=== PATIENT | female | born 1935 | race Caucasian/White ===

== ENCOUNTER 2017-07-13 15:40 | Inpatient (IN) | payer MEDICARE ==
[~2017-07-13] VITALS: Ht 160 cm; Wt 67.1 kg
[~2017-07-13 15:40] MED LIST: AEC81 PO; CETI-101 PO; ESCI20TA36 PO; METF-527 PO; SITA100T12 PO
[2017-07-13 17:30] VITALS: BP 127/67
[2017-07-13] MEDS ORDERED: SITA100T12 PO (17:31)
[2017-07-13] MEDS ORDERED: NITR0.4T50 SL (17:31)
[2017-07-13] MEDS ORDERED: ESCI20TA36 PO (17:31)
[2017-07-13] MEDS ORDERED: ALBU8.5H8 IH (17:31)
[2017-07-13] MEDS ORDERED: LORA0.5T2 PO (17:31)
[2017-07-13] MEDS ORDERED: METF10004 PO (17:31)
[2017-07-13] MEDS ORDERED: LOSA25TA21 PO (17:31)
[2017-07-13] MEDS ORDERED: ASPI-1181 PO (17:31)
[2017-07-13] MEDS ORDERED: ALIR150P SQ (17:31)
[2017-07-13 18:11] LABS: HEMATOCRIT 36.7 % (36-48); MEAN CORPUSCULAR HEMOGLOBIN 25.8 pg (27.0-33.0); MEAN CORPUSCULAR HGB CONC 32.9 g/dL (32.0-36.0); MEAN CORPUSCULAR VOLUME 78.2 fL (79-99); PLATELET COUNT (AUTO) 222 K/uL (130-400); RED BLOOD CELL COUNT(AUTO) 4.69 MIL/uL (4.00-5.50); RED CELL DISTRIBUTION WIDTH 14.9 % (11.0-15.5); WHITE BLOOD COUNT (AUTO) 6.8 K/uL (4.8-10.8)
[2017-07-13 18:23] LABS: INR 0.98 (0.85-1.15); PARTIAL THROMBOPLASTIN TIME 23.2 SEC (26.3-35.5); PROTHROMBIN TIME 10.3 SEC (9.6-11.6)
[2017-07-13] MEDS ORDERED: SODIUM CHLORIDE 0.9% 10 ML VIAL IVP PRN (18:30)
[2017-07-13 18:44] LABS: ALANINE AMINOTRANSFERASE 23 U/L (12-78); ALBUMIN 3.5 g/dL (3.5-5.0); ASPARTATE AMINOTRANSFERASE 19 U/L (10-37); BILIRUBIN,TOTAL 0.4 mg/dL (0.2-1.0); CARBON DIOXIDE 28 mmol/L (21-32); CHLORIDE 105 mmol/L (101-111); CREATINE KINASE MB 1.1 ng/mL (0.5-3.6); CREATINE KINASE, TOTAL 49 U/L (21-232); CREATININE 0.9 mg/dL (0.5-1.5); GLOMERULAR FILTR. RATE CALC 64 mL/min (>60); GLUCOSE,RANDOM 139 mg/dL (70-105); MYOGLOBIN 28 ng/mL (10-92); POTASSIUM 4.1 mmol/L (3.5-5.1); SODIUM SERUM 140 mmol/L (136-145); TROPONIN I < 0.04 ng/mL (0.00-0.06); UREA NITROGEN, BLOOD 17 mg/dL (7-18)
[2017-07-13] MEDS ORDERED: NITROGLYCERIN 50 MG/D5% WATER 1 BOT IV PRN (18:45)
[2017-07-13] MEDS ORDERED: POTASSIUM CHLORIDE 20MEQ/100ML 100 ML IV PRN (19:00)
[2017-07-13] MEDS ORDERED: GLUCAGON 1MG KIT 1 MG ML IM PRN (19:00)
[2017-07-13] MEDS ORDERED: DEXTROSE 50%-WATER 50 ML DISP.SYRIN IV PRN (19:00)
[2017-07-13] MEDS ORDERED: LIDOCAINE HCL-MPF 1% 2ML VIAL IJ PRN (19:00)
[2017-07-13] MEDS ORDERED: POTASSIUM CHLORIDE 10% ELIXIR 20 MEQ/15 ML UDCUP PO PRN (19:00)
[2017-07-13 19:17] LABS: B-TYPE NATRIURETIC PEPTIDE 250 pg/mL (0-100)
[2017-07-13 19:36] VITALS: BP 127/67
[2017-07-13] MEDS: ALBUTEROL 2 PUFFS IH SCH (20:32)
[2017-07-13 20:38] LABS: APPEARANCE,URINE Clear (CLEAR); BILIRUBIN,URINE Negative (NEGATIVE); COLOR,URINE Yellow (YELLOW); GLUCOSE, URINE (UA) Negative (NEGATIVE); KETONES,URINE Negative (NEGATIVE); LEUKOCYTE ESTERASE ,URINE Moderate (NEGATIVE); NITRATE,URINE Negative (NEGATIVE); OCCULT BLOOD,URINE Negative (NEGATIVE); PROTEIN,URINE Negative (NEGATIVE); UROBILINOGEN,URINE 0.2 mg/dL (0.2-1.0)
[2017-07-13] MEDS: HUMALOG PO SS1 SQ SCH (21:00)
[2017-07-13 21:02] LABS: BACTERIA,URINE Rare /HPF (None Seen); RBC,URINE 0-1 /HPF (0-1)
[2017-07-13 21:03] LABS: SQUAMOUS EPITHELIAL CELL,UR Few /HPF (0-2)
[2017-07-14] VITALS (10 sets, daily range): BP systolic 115–139; BP diastolic 62–72
[2017-07-14] MEDS ORDERED: LACTULOSE 20 GM/30 ML UDCUP PO PRN (01:00)
[2017-07-14 03:39] LABS: HEMATOCRIT 33.5 % (36-48); MEAN CORPUSCULAR HEMOGLOBIN 27.7 pg (27.0-33.0); MEAN CORPUSCULAR HGB CONC 35.5 g/dL (32.0-36.0); MEAN CORPUSCULAR VOLUME 78.2 fL (79-99); PLATELET COUNT (AUTO) 206 K/uL (130-400); RED BLOOD CELL COUNT(AUTO) 4.28 MIL/uL (4.00-5.50)
[2017-07-14 03:51] LABS: POTASSIUM 3.9 mmol/L (3.5-5.1)
[2017-07-14] MEDS: HUMALOG PO SS1 SQ SCH ×4 (06:05→20:58)
[2017-07-14] MEDS: ALBUTEROL 2 PUFFS IH SCH ×2 (09:00→21:00)
[2017-07-14] MEDS ORDERED: JANUVIA 100MG PO SCH (09:00)
[2017-07-14] MEDS ORDERED: ESCITALOPRAM 20MG PO SCH (09:00)
[2017-07-14] MEDS: FAMOTIDINE 20MG TAB 20 MG TAB PO SCH (09:41)
[2017-07-14] MEDS: LOSARTAN 50 MG TABLET PO SCH (09:41)
[2017-07-14] MEDS: ASPIRIN 81MG TAB.CHEW PO SCH (09:41)
[2017-07-14] MEDS ORDERED: LORAZEPAM 0.5 MG TABLET PO PRN (10:15)
[2017-07-14] MEDS ORDERED: ISOVUE-370 50ML VIAL IV ONE (15:23)
[2017-07-14] MEDS ORDERED: BIVALIRUDIN 250 MG/VIAL IV ONE (15:23)
[2017-07-14] MEDS ORDERED: IOPAMIDOL-370 100 ML VIAL IV ONE ×2 (15:23)
[2017-07-14] MEDS ORDERED: NITROGLYCERIN 5 MG/ML 10 ML VIAL IV ONE (15:23)
[2017-07-14] MEDS ORDERED: LIDOCAINE HCL 2% 20ML ONE (15:24)
[2017-07-14] MEDS ORDERED: NITROGLYCERIN 4.1 GM SPRAY TL ONE (16:20)
[2017-07-14] MEDS ORDERED: SODIUM CHLORIDE 0.9% 1000ML 1,000 ML IV SCH (16:37)
[2017-07-14] MEDS ORDERED: FUROSEMIDE 10 MG/ML 2ML VIAL ONE (16:44)
[2017-07-14] MEDS ORDERED: FUROSEMIDE 20 MG TABLET PO SCH (16:45)
[2017-07-14] MEDS ORDERED: GLUCAGON 1MG KIT 1 MG ML IM PRN (16:45)
[2017-07-14] MEDS ORDERED: DEXTROSE 50%-WATER 50 ML DISP.SYRIN IV PRN (16:45)
[2017-07-14] MEDS: LINAGLIPTIN 5 MG TABLET PO SCH (20:53)
[2017-07-14] MEDS: CITALOPRAM 20 MG TABLET PO SCH (20:56)
[2017-07-15 00:25] VITALS: BP 107/57
[2017-07-15 04:08] LABS: CREATININE 0.9 mg/dL (0.5-1.5); POTASSIUM 3.3 mmol/L (3.5-5.1)
[2017-07-15 04:15] VITALS: BP 114/54
[2017-07-15] MEDS: POTASSIUM CHLORIDE 20 MEQ ERTAB PO PRN ×3 (06:11→11:57)
[2017-07-15] MEDS: HUMALOG PO SS1 SQ SCH ×4 (06:37→20:54)
[2017-07-15 07:40] VITALS: BP 125/63
[2017-07-15] MEDS ORDERED: LOSARTAN 50 MG TABLET PO SCH (09:00)
[2017-07-15] MEDS: ALBUTEROL 2 PUFFS IH SCH ×2 (09:00→20:54)
[2017-07-15] MEDS: FAMOTIDINE 20MG TAB 20 MG TAB PO SCH (09:23)
[2017-07-15] MEDS: FUROSEMIDE 20 MG TABLET PO SCH (09:23)
[2017-07-15] MEDS: ASPIRIN 81MG TAB.CHEW PO SCH (09:23)
[2017-07-15] MEDS: LOSARTAN 50 MG TABLET PO SCH (09:23)
[2017-07-15] MEDS ORDERED: ALIROCUMAB 150 MG SQ SCH (10:15)
[2017-07-15 11:00] VITALS: BP 117/66
[2017-07-15 16:27] VITALS: BP 110/54
[2017-07-15 19:47] VITALS: BP 121/65
[2017-07-15] MEDS: LINAGLIPTIN 5 MG TABLET PO SCH (20:29)
[2017-07-15] MEDS: CITALOPRAM 20 MG TABLET PO SCH (20:29)
[2017-07-16] VITALS: BP 123/55
[2017-07-16 04:00] VITALS: BP 121/63
[2017-07-16 05:11] LABS: CREATININE 0.9 mg/dL (0.5-1.5); POTASSIUM 3.6 mmol/L (3.5-5.1)
[2017-07-16] MEDS: HUMALOG PO SS1 SQ SCH ×4 (06:07→22:47)
[2017-07-16] MEDS: POTASSIUM CHLORIDE 20 MEQ ERTAB PO PRN ×2 (06:18→08:52)
[2017-07-16 07:43] VITALS: BP 117/61
[2017-07-16] MEDS: LOSARTAN 50 MG TABLET PO SCH (08:51)
[2017-07-16] MEDS: ALBUTEROL 2 PUFFS IH SCH (08:51)
[2017-07-16] MEDS: FUROSEMIDE 20 MG TABLET PO SCH (08:51)
[2017-07-16] MEDS: FAMOTIDINE 20MG TAB 20 MG TAB PO SCH (08:51)
[2017-07-16] MEDS: ASPIRIN 81MG TAB.CHEW PO SCH (08:51)
[2017-07-16] MEDS ORDERED: FUROSEMIDE 10 MG/ML 2ML VIAL IV SCH (11:30)
[2017-07-16 11:34] VITALS: BP 121/57
[2017-07-16] MEDS ORDERED: VANCOMYCIN 1GM+NS 250ML 250 ML IV PRN (12:00)
[2017-07-16] MEDS: JANUVIA 100 MG PO SCH (12:47)
[2017-07-16] MEDS: CARVEDILOL 3.125 MG TABLET PO SCH ×2 (13:16→20:41)
[2017-07-16 16:39] VITALS: BP 109/56
[2017-07-16 17:25] LABS: CREATININE 0.9 mg/dL (0.5-1.5); MAGNESIUM 1.4 mg/dL (1.80-2.40); POTASSIUM 3.9 mmol/L (3.5-5.1)
[2017-07-16] MEDS: ALBUTEROL SULFATE 0.083% 2.5 MG/3 ML INH IH SCH (18:00)
[2017-07-16 19:35] VITALS: BP 134/71
[2017-07-16] MEDS: CITALOPRAM 20 MG TABLET PO SCH (20:41)
[2017-07-17] VITALS (8 sets, daily range): BP systolic 101–127; BP diastolic 49–65
[2017-07-17 05:08] LABS: MAGNESIUM 1.6 mg/dL (1.80-2.40); POTASSIUM 3.6 mmol/L (3.5-5.1)
[2017-07-17] MEDS: ALBUTEROL SULFATE 0.083% 2.5 MG/3 ML INH IH SCH ×4 (06:00→18:00)
[2017-07-17] MEDS: POTASSIUM CHLORIDE 20 MEQ ERTAB PO PRN ×2 (06:06→09:16)
[2017-07-17] MEDS: HUMALOG PO SS1 SQ SCH ×4 (07:34→20:13)
[2017-07-17] MEDS: JANUVIA 100 MG PO SCH (09:00)
[2017-07-17] MEDS: ASPIRIN 81MG TAB.CHEW PO SCH (09:12)
[2017-07-17] MEDS: CARVEDILOL 3.125 MG TABLET PO SCH ×2 (09:12→20:10)
[2017-07-17] MEDS: FUROSEMIDE 20 MG TABLET PO SCH (09:13)
[2017-07-17] MEDS: FAMOTIDINE 20MG TAB 20 MG TAB PO SCH (09:13)
[2017-07-17] MEDS ORDERED: MAGNESIUM 2GM PREMIX 50ML 50 ML IV PRN (09:15)
[2017-07-17] MEDS ORDERED: MAGNESIUM 2GM PREMIX 50ML 50 ML IV ONE (09:15)
[2017-07-17] MEDS: LOSARTAN 50 MG TABLET PO SCH (09:26)
[2017-07-17 10:06] LABS: CREATINE KINASE, TOTAL 51 U/L (21-232); MYOGLOBIN 35 ng/mL (10-92); TROPONIN I < 0.04 ng/mL (0.00-0.06)
[2017-07-17] MEDS: SPIRONOLACTONE 25 MG TAB PO SCH (18:05)
[2017-07-17] MEDS: ENOXAPARIN SODIUM 30 MG/0.3 ML SQ SCH (18:06)
[2017-07-17] MEDS: CITALOPRAM 20 MG TABLET PO SCH (20:10)
[2017-07-18 03:51] LABS: HEMATOCRIT 33.4 % (36-48); MEAN CORPUSCULAR HEMOGLOBIN 26.4 pg (27.0-33.0); MEAN CORPUSCULAR HGB CONC 33.6 g/dL (32.0-36.0); MEAN CORPUSCULAR VOLUME 78.7 fL (79-99); NUCLEATED RED BLOOD CELLS 0.1 % (0.0-0.19); PLATELET COUNT (AUTO) 210 K/uL (130-400); RED BLOOD CELL COUNT(AUTO) 4.25 MIL/uL (4.00-5.50); WHITE BLOOD COUNT (AUTO) 6.7 K/uL (4.8-10.8)
[2017-07-18 03:54] VITALS: BP 109/65
[2017-07-18 04:01] LABS: POTASSIUM 3.9 mmol/L (3.5-5.1)
[2017-07-18 04:08] LABS: INR 0.96 (0.85-1.15); PARTIAL THROMBOPLASTIN TIME 24.2 SEC (26.3-35.5); PROTHROMBIN TIME 10.1 SEC (9.6-11.6)
[2017-07-18] MEDS: ALBUTEROL SULFATE 0.083% 2.5 MG/3 ML INH IH SCH ×4 (06:00→18:00)
[2017-07-18] MEDS: HUMALOG PO SS1 SQ SCH ×4 (06:01→20:50)
[2017-07-18] MEDS: SPIRONOLACTONE 25 MG TAB PO SCH (07:34)
[2017-07-18] MEDS: CARVEDILOL 3.125 MG TABLET PO SCH ×2 (07:34→20:47)
[2017-07-18] MEDS: LOSARTAN 50 MG TABLET PO SCH (07:34)
[2017-07-18] MEDS: FAMOTIDINE 20MG TAB 20 MG TAB PO SCH (07:38)
[2017-07-18] MEDS: FUROSEMIDE 20 MG TABLET PO SCH (07:38)
[2017-07-18 07:41] VITALS: BP 108/52
[2017-07-18 11:48] VITALS: BP 104/51
[2017-07-18] MEDS: ASPIRIN 81MG TAB.CHEW PO SCH (13:04)
[2017-07-18] MEDS: ENOXAPARIN SODIUM 30 MG/0.3 ML SQ SCH (13:04)
[2017-07-18] MEDS: JANUVIA 100 MG PO SCH (13:07)
[2017-07-18 16:00] VITALS: BP 127/62
[2017-07-18 19:25] VITALS: BP 121/63
[2017-07-18] MEDS: CITALOPRAM 20 MG TABLET PO SCH (20:47)
[2017-07-18 23:39] VITALS: BP 111/80
[2017-07-19] VITALS (12 sets, daily range): BP systolic 113–147; BP diastolic 54–83
[2017-07-19] MEDS: HUMALOG PO SS1 SQ SCH ×4 (05:37→21:49)
[2017-07-19] MEDS: ALBUTEROL SULFATE 0.083% 2.5 MG/3 ML INH IH SCH ×4 (06:00→18:00)
[2017-07-19] MEDS ORDERED: BUPIVACAINE/PF 0.25% 10ML VIAL IJ ONE (08:46)
[2017-07-19] MEDS ORDERED: LIDOCAINE HCL 1% MDV 50ML VIAL ONE (08:46)
[2017-07-19] MEDS ORDERED: BUPIVACAINE/PF 0.25% 30ML VIAL IJ ONE (08:47)
[2017-07-19] MEDS ORDERED: MIDAZOLAM HCL 1 MG/ML 2ML VIAL ONE ×2 (08:52→09:58)
[2017-07-19] MEDS ORDERED: MEPERIDINE-PF 25 MG/ML SYG ONE ×2 (08:52→09:58)
[2017-07-19] MEDS ORDERED: ISOVUE-300 100 ML VIAL IV ONE (08:52)
[2017-07-19] MEDS ORDERED: VANCOMYCIN 1GM+NS 250ML 500 ML IV ONE (08:53)
[2017-07-19] MEDS: ENOXAPARIN SODIUM 30 MG/0.3 ML SQ SCH (09:00)
[2017-07-19] MEDS: CARVEDILOL 3.125 MG TABLET PO SCH ×2 (09:00→20:39)
[2017-07-19] MEDS: FAMOTIDINE 20MG TAB 20 MG TAB PO SCH (09:00)
[2017-07-19] MEDS: JANUVIA 100 MG PO SCH (09:00)
[2017-07-19] MEDS: LOSARTAN 50 MG TABLET PO SCH (09:00)
[2017-07-19] MEDS: FUROSEMIDE 20 MG TABLET PO SCH (09:00)
[2017-07-19] MEDS: SPIRONOLACTONE 25 MG TAB PO SCH (09:00)
[2017-07-19] MEDS: ASPIRIN 81MG TAB.CHEW PO SCH (09:00)
[2017-07-19] MEDS ORDERED: ACETAMINOPHEN-CODEINE 300/30MG TAB PO PRN (11:45)
[2017-07-19] MEDS ORDERED: ACETAMINOPHEN 325 MG TAB PO PRN (11:45)
[2017-07-19] MEDS: ACETAMINOPHEN-CODEINE 300/30MG TAB PO PRN ×2 (16:16→23:38)
[2017-07-19] MEDS: CITALOPRAM 20 MG TABLET PO SCH (20:39)
[2017-07-20 03:20] VITALS: BP 126/62
[2017-07-20 04:09] LABS: CREATININE 1.1 mg/dL (0.5-1.5); POTASSIUM 3.9 mmol/L (3.5-5.1)
[2017-07-20] MEDS: ALBUTEROL SULFATE 0.083% 2.5 MG/3 ML INH IH SCH ×3 (06:00→11:53)
[2017-07-20] MEDS: HUMALOG PO SS1 SQ SCH ×2 (06:32→11:23)
[2017-07-20] MEDS: FUROSEMIDE 20 MG TABLET PO SCH (07:29)
[2017-07-20] MEDS: CARVEDILOL 3.125 MG TABLET PO SCH (07:29)
[2017-07-20] MEDS: LOSARTAN 50 MG TABLET PO SCH (07:29)
[2017-07-20] MEDS: SPIRONOLACTONE 25 MG TAB PO SCH (07:29)
[2017-07-20] MEDS: ASPIRIN 81MG TAB.CHEW PO SCH (07:30)
[2017-07-20] MEDS: FAMOTIDINE 20MG TAB 20 MG TAB PO SCH (07:30)
[2017-07-20] MEDS: JANUVIA 100 MG PO SCH (07:30)
[2017-07-20 07:40] VITALS: BP 128/58
[2017-07-20] MEDS ORDERED: FURO20TA6 PO (09:45)
[2017-07-20] MEDS ORDERED: SPIR25TA PO (09:45)
[2017-07-20] MEDS ORDERED: CARV3.1262 PO (09:45)
[2017-07-20 11:31] VITALS: BP 127/63
[2017-07-20] MEDS: ACETAMINOPHEN-CODEINE 300/30MG TAB PO PRN (11:50)
[2017-07-20] MEDS ORDERED: TYL3 PO (15:44)
[2017-07-20 16:01] VITALS: BP 122/60
== END 2017-07-20 17:30 | disposition home or self-care (01) | DRG 242 ==
LOC: EDH 15:40 → EDHIP 15:41 → 2DH 17:40
PROVIDERS: ADMIT Family Medicine; ATTEND Family Medicine
PROC: B2111ZZ Fluoroscopy of Multiple Coronary Arteries using Low Osmolar Contrast (ICD-10-PCS; principal; 2017-07-14)
PROC: B2151ZZ Fluoroscopy of Left Heart using Low Osmolar Contrast (ICD-10-PCS; 2017-07-14)
PROC: 4A023N7 Measurement of Cardiac Sampling and Pressure, Left Heart, Percutaneous Approach (ICD-10-PCS; 2017-07-14)
PROC: 0JH607Z Insertion of Cardiac Resynchronization Pacemaker Pulse Generator into Chest Subcutaneous Tissue and Fascia, Open Approach (ICD-10-PCS; 2017-07-19)
PROC: 02H63JZ Insertion of Pacemaker Lead into Right Atrium, Percutaneous Approach (ICD-10-PCS; 2017-07-19)
PROC: 02HK3JZ Insertion of Pacemaker Lead into Right Ventricle, Percutaneous Approach (ICD-10-PCS; 2017-07-19)
DX: I25.5 Ischemic cardiomyopathy (principal); I50.43 Acute on chronic combined systolic (congestive) and diastolic (congestive) heart failure; E11.9 Type 2 diabetes mellitus without complications; I34.0 Nonrheumatic mitral (valve) insufficiency; I11.0 Hypertensive heart disease with heart failure; I25.119 Atherosclerotic heart disease of native coronary artery with unspecified angina pectoris; E78.5 Hyperlipidemia, unspecified; I25.2 Old myocardial infarction; I44.7 Left bundle-branch block, unspecified; J45.909 Unspecified asthma, uncomplicated; K21.9 Gastro-esophageal reflux disease without esophagitis; Z79.82 Long term (current) use of aspirin; Z82.49 Family history of ischemic heart disease and other diseases of the circulatory system; Z90.710 Acquired absence of both cervix and uterus; Z95.1 Presence of aortocoronary bypass graft; Z95.5 Presence of coronary angioplasty implant and graft; Z88.0 Allergy status to penicillin; Z88.2 Allergy status to sulfonamides; Z88.8 Allergy status to other drugs, medicaments and biological substances; Z90.49 Acquired absence of other specified parts of digestive tract
CPT/HCPCS: 33225; 33249; 36415; 71045; 80048; 80053; 80061; 81001; 82550; 82553; 82948; 83735; 83874; 83880; 84484; 85027; 85610; 85730; 93005; 93459; 94664; 99156; 99157; C1760; C1769; C1882; C1894; C1900; J0583; J1644; J1650; J1940; J2175; J2250; J3370; J3475; J3490; Q9967

== ENCOUNTER → 2017-11-01 | Outpatient (CLI) | payer MEDICARE ==
[~2017-11-01] MED LIST changes: -AEC81 PO; +ALIR150P SQ; +ASPI-1181 PO; +CARV3.1262 PO; -CETI-101 PO; +FURO20TA6 PO; +LORA0.5T2 PO; +LOSA25TA16 PO; +METF-446 PO; -METF-527 PO; +NITR0.4T50 SL; +SPIR25TA PO; +TYL3 PO
== END | disposition home or self-care (01) ==
LOC: RAH 10:08
PROVIDERS: ATTEND Internal Medicine Gastroenterology
DX: R13.12 Dysphagia, oropharyngeal phase (principal); R63.3 Feeding difficulties; F32.9 Major depressive disorder, single episode, unspecified; I11.0 Hypertensive heart disease with heart failure; I50.9 Heart failure, unspecified; E11.9 Type 2 diabetes mellitus without complications; E78.5 Hyperlipidemia, unspecified; K21.9 Gastro-esophageal reflux disease without esophagitis
CPT/HCPCS: 74230; 92611; G8996; G8997; G8998

== ENCOUNTER → 2018-06-21 | Outpatient (CLI) | payer MEDICARE ==
[~2018-06-21] MED LIST changes: -LOSA25TA16 PO; +LOSA25TA41 PO
== END | disposition home or self-care (01) ==
LOC: SHCH 09:53
PROVIDERS: ATTEND Internal Medicine Cardiovascular Disease
DX: I08.0 Rheumatic disorders of both mitral and aortic valves (principal); I50.42 Chronic combined systolic (congestive) and diastolic (congestive) heart failure; I25.2 Old myocardial infarction; G47.33 Obstructive sleep apnea (adult) (pediatric)
CPT/HCPCS: 93306

== ENCOUNTER 2018-11-08 08:50 | Emergency (ER) | payer MEDICARE ==
[2018-11-08] MEDS ORDERED: IOHEXOL-350 75 ML VIAL IV ONE (09:06)
[2018-11-08 09:09] LABS: BASOPHILS % (AUTO) 0.6 % (0.0-5.0); EOSINOPHILS % (AUTO) 3.3 % (0.0-8.0); HEMATOCRIT 32.9 % (36-48); LYMPHOCYTES % (AUTO) 24.2 % (21.0-51.0); MEAN CORPUSCULAR HEMOGLOBIN 27.8 pg (27.0-33.0); MEAN CORPUSCULAR HGB CONC 34.2 g/dL (32.0-36.0); MEAN CORPUSCULAR VOLUME 81.3 fL (79-99); MONOCYTES % (AUTO) 9.4 % (3.0-13.0); NEUTROPHILS % (AUTO) 62.5 % (40.0-77.0); PLATELET COUNT (AUTO) 216 K/uL (130-400); RED BLOOD CELL COUNT(AUTO) 4.05 MIL/uL (4.00-5.50); RED CELL DISTRIBUTION WIDTH 14.5 % (11.0-15.5)
[2018-11-08 09:16] LABS: CREATININE 1.4 mg/dL (0.5-1.5); POTASSIUM 4.2 mmol/L (3.5-5.1)
[2018-11-08 09:22] LABS: ALBUMIN 3.4 g/dL (3.5-5.0); BILIRUBIN,TOTAL 0.2 mg/dL (0.2-1.0); TOTAL PROTEIN, SERUM 6.7 g/dL (6.0-8.3)
[2018-11-08 09:31] LABS: INR 0.93 (0.85-1.15); PARTIAL THROMBOPLASTIN TIME 22.7 SEC (26.3-35.5); PROTHROMBIN TIME 9.8 SEC (9.6-11.6)
[2018-11-08 09:48] LABS: APPEARANCE,URINE Cloudy (CLEAR); BILIRUBIN,URINE Negative (NEGATIVE); COLOR,URINE Yellow (YELLOW); GLUCOSE, URINE (UA) Negative (NEGATIVE); KETONES,URINE Negative (NEGATIVE); LEUKOCYTE ESTERASE ,URINE Large (NEGATIVE); NITRATE,URINE Negative (NEGATIVE); OCCULT BLOOD,URINE Negative (NEGATIVE); PROTEIN,URINE Negative (NEGATIVE)
[2018-11-08 09:50] LABS: BACTERIA,URINE Few /HPF (None Seen); RBC,URINE 0-1 /HPF (0-1); SQUAMOUS EPITHELIAL CELL,UR Few /HPF (0-2)
[2018-11-08] MEDS ORDERED: ONDANSETRON HCL 4 MG/2 ML VIAL ONE (10:41)
[2018-11-08] MEDS ORDERED: ACETAMINOPHEN EXTRA STRENGTH 500 MG TABLET ONE (11:16)
[2018-11-08] MEDS ORDERED: CYCLOBENZAPRINE HCL 10 MG TABLET ONE (11:17)
== END 2018-11-08 12:50 | disposition home or self-care (01) ==
LOC: EDH 08:50
DX: M54.2 Cervicalgia (principal); M25.511 Pain in right shoulder; I10 Essential (primary) hypertension; E11.9 Type 2 diabetes mellitus without complications; E78.5 Hyperlipidemia, unspecified; Z88.0 Allergy status to penicillin; Z88.2 Allergy status to sulfonamides; Z88.8 Allergy status to other drugs, medicaments and biological substances; V49.59XA Passenger injured in collision with other motor vehicles in traffic accident, initial encounter; Y93.89 Activity, other specified; Y92.89 Other specified places as the place of occurrence of the external cause; Y99.8 Other external cause status
CPT/HCPCS: 36415; 70450; 71045; 72125; 72131; 73030; 74177; 80053; 81001; 82150; 82550; 83690; 84484; 85025; 85610; 85730; 93005; 96374; 99285; J2405; Q9967

== ENCOUNTER 2019-01-11 13:14 | Emergency (ER) | payer MEDICARE ==
[2019-01-11 13:37] LABS: BASOPHILS % (AUTO) 0.7 % (0.0-5.0); EOSINOPHILS % (AUTO) 3.4 % (0.0-8.0); HEMATOCRIT 33.2 % (36-48); LYMPHOCYTES % (AUTO) 22.5 % (21.0-51.0); MEAN CORPUSCULAR HEMOGLOBIN 27.9 pg (27.0-33.0); MEAN CORPUSCULAR HGB CONC 33.3 g/dL (32.0-36.0); MEAN CORPUSCULAR VOLUME 83.9 fL (79-99); MONOCYTES % (AUTO) 8.6 % (3.0-13.0); NEUTROPHILS % (AUTO) 64.8 % (40.0-77.0); PLATELET COUNT (AUTO) 225 K/uL (130-400); RED BLOOD CELL COUNT(AUTO) 3.95 MIL/uL (4.00-5.50); RED CELL DISTRIBUTION WIDTH 15.1 % (11.0-15.5); WHITE BLOOD COUNT (AUTO) 6.3 K/uL (4.8-10.8)
[2019-01-11 13:46] LABS: INR 0.97 (0.85-1.15); PARTIAL THROMBOPLASTIN TIME 22.9 SEC (26.3-35.5); PROTHROMBIN TIME 10.2 SEC (9.6-11.6)
[2019-01-11 13:56] LABS: CREATININE 1.4 mg/dL (0.5-1.5); POTASSIUM 4.8 mmol/L (3.5-5.1)
[2019-01-11 14:02] LABS: ALBUMIN 3.4 g/dL (3.5-5.0); BILIRUBIN,TOTAL 0.2 mg/dL (0.2-1.0); TOTAL PROTEIN, SERUM 6.8 g/dL (6.0-8.3)
[2019-01-11] MEDS ORDERED: LIDOCAINE 1%-EPI 1:100,000 20 ML VIAL IJ ONE (14:51)
[2019-01-11] MEDS ORDERED: ACETAMINOPHEN EXTRA STRENGTH 500 MG TABLET ONE (14:53)
== END 2019-01-11 16:46 | disposition home or self-care (01) ==
LOC: EDH 13:14
DX: S01.21XA Laceration without foreign body of nose, initial encounter (principal); S40.012A Contusion of left shoulder, initial encounter; E11.9 Type 2 diabetes mellitus without complications; E78.5 Hyperlipidemia, unspecified; I10 Essential (primary) hypertension; Z98.84 Bariatric surgery status; Z88.0 Allergy status to penicillin; Z88.2 Allergy status to sulfonamides; Z88.8 Allergy status to other drugs, medicaments and biological substances; W18.39XA Other fall on same level, initial encounter; Y93.89 Activity, other specified; Y92.89 Other specified places as the place of occurrence of the external cause; Y99.8 Other external cause status
CPT/HCPCS: 12051; 36415; 70450; 70486; 71045; 73020; 73560; 80053; 82550; 84484; 85025; 85610; 85730; 93005; 99285; J3490

== ENCOUNTER 2020-01-30 09:58 | Observation (INO) | payer MEDICARE ==
[2020-01-28 09:00] LABS: BASOPHILS % (AUTO) 0.4 % (0.0-5.0); EOSINOPHILS % (AUTO) 3.1 % (0.0-8.0); HEMATOCRIT 34.2 % (36-48); LYMPHOCYTES % (AUTO) 29.6 % (21.0-51.0); MEAN CORPUSCULAR HEMOGLOBIN 24.6 pg (27.0-33.0); MEAN CORPUSCULAR HGB CONC 30.4 g/dL (32.0-36.0); MONOCYTES % (AUTO) 8.9 % (3.0-13.0); NEUTROPHILS % (AUTO) 57.9 % (40.0-77.0); PLATELET COUNT (AUTO) 257 K/uL (130-400); RED BLOOD CELL COUNT(AUTO) 4.22 MIL/uL (4.00-5.50); RED CELL DISTRIBUTION WIDTH 15.2 % (11.0-15.5); WHITE BLOOD COUNT (AUTO) 7.1 K/uL (4.8-10.8)
[2020-01-28 09:05] LABS: APPEARANCE,URINE Clear (CLEAR); BILIRUBIN,URINE Negative (NEGATIVE); COLOR,URINE Yellow (YELLOW); GLUCOSE, URINE (UA) Negative (NEGATIVE); KETONES,URINE Negative (NEGATIVE); LEUKOCYTE ESTERASE ,URINE Moderate (NEGATIVE); NITRATE,URINE Negative (NEGATIVE); OCCULT BLOOD,URINE Negative (NEGATIVE); PROTEIN,URINE Negative (NEGATIVE); UROBILINOGEN,URINE 0.2 mg/dL (0.2-1.0)
[2020-01-28 09:16] LABS: CREATININE 1.3 mg/dL (0.5-1.5); POTASSIUM 4.8 mmol/L (3.5-5.1)
[2020-01-28 09:21] LABS: INR 0.92 (0.85-1.15); PARTIAL THROMBOPLASTIN TIME 22.2 SEC (26.3-35.5)
[2020-01-28 09:29] LABS: BACTERIA,URINE Few /HPF (None Seen); RBC,URINE None Seen /HPF (0-1)
[2020-01-29 13:35] VITALS: BP 117/62
[~2020-01-30] VITALS: Ht 157.5 cm; Wt 69.9 kg
[2020-01-30] VITALS (8 sets, daily range): BP systolic 123–131; BP diastolic 50–65
[~2020-01-30 09:58] MED LIST changes: -ALIR150P SQ; -ASPI-1181 PO; +ASPI-1443 PO; +BUDE3CAP7 PO; -CARV3.1262 PO; +CETI-89 PO; -FURO20TA6 PO; +HYDR12.54 PO; -LORA0.5T2 PO; -LOSA25TA41 PO; +METO-408 PO; +PANT40TA54 PO; +SACU1TAB PO; +SODIUM CHLORIDE 0.9% 500ML 500 ML IV SCH; -SPIR25TA PO; -TYL3 PO
[2020-01-30] MEDS ORDERED: HEPARIN SODIUM 1000UNIT/ML 10ML VIAL ONE (15:40)
[2020-01-30] MEDS ORDERED: LIDOCAINE HCL 2% 20ML ONE (15:40)
[2020-01-30] MEDS ORDERED: FENTANYL CITRATE PF 50 MCG/1 ML 2ML VIAL ONE (15:40)
[2020-01-30] MEDS ORDERED: NITROGLYCERIN 2 MG/VIAL VIAL IV ONE (15:40)
[2020-01-30] MEDS ORDERED: IOHEXOL 350 MG/ML 100ML INFUS..BTL IV ONE (15:40)
[2020-01-30] MEDS ORDERED: MIDAZOLAM HCL 1 MG/ML 2ML VIAL ONE (15:40)
[2020-01-30] MEDS ORDERED: IOHEXOL-350 50ML VIAL IV ONE (15:40)
[2020-01-30] MEDS ORDERED: SODIUM BICARB 50MEQ 50ML VIAL 50 ML ONE (15:58)
[2020-01-30] MEDS ORDERED: BIVALIRUDIN 250 MG/VIAL IV ONE (15:58)
[2020-01-30] MEDS ORDERED: FUROSEMIDE 10 MG/ML 2ML VIAL ONE (16:51)
[2020-01-30] MEDS: LOSARTAN 50 MG TABLET PO SCH ×2 (19:22→21:02)
[2020-01-31 04:01] VITALS: BP 135/61
[2020-01-31 06:13] LABS: CREATININE 1.2 mg/dL (0.5-1.5); POTASSIUM 4.1 mmol/L (3.5-5.1)
[2020-01-31 08:45] VITALS: BP 116/51
== END 2020-01-31 10:20 | disposition home or self-care (01) ==
LOC: DAH 09:58 → 4DH 09:59 → DAH 09:59
PROVIDERS: ADMIT Internal Medicine Cardiovascular Disease; ATTEND Internal Medicine Cardiovascular Disease
DX: I25.119 Atherosclerotic heart disease of native coronary artery with unspecified angina pectoris (principal); I50.9 Heart failure, unspecified; I42.9 Cardiomyopathy, unspecified; G47.30 Sleep apnea, unspecified; E11.9 Type 2 diabetes mellitus without complications; Z99.89 Dependence on other enabling machines and devices; Z95.1 Presence of aortocoronary bypass graft; Z90.710 Acquired absence of both cervix and uterus; Z79.82 Long term (current) use of aspirin; Z79.899 Other long term (current) drug therapy; Z88.0 Allergy status to penicillin; Z88.2 Allergy status to sulfonamides; Z88.8 Allergy status to other drugs, medicaments and biological substances
CPT/HCPCS: 36415 ×2; 71045; 80048 ×2; 81001; 82948 ×4; 85025; 85610; 85730; 87088; 93005; 93459; A4215; A4216; A4221; A4222; A4223 ×2; A4606; A4663; C1760; C1894 ×2; G0378 ×24; J1644; J1940; J3490 ×3; Q9965 ×2; Q9967 ×2; J0583; J2250; J3010

== ENCOUNTER → 2020-03-16 | Outpatient (CLI) | payer MEDICARE ==
[~2020-03-16] MED LIST changes: -ESCI20TA36 PO; +ESCI20TA54 PO; -SODIUM CHLORIDE 0.9% 500ML 500 ML IV SCH
== END | disposition home or self-care (01) ==
LOC: RAH 12:21
PROVIDERS: ATTEND Internal Medicine Cardiovascular Disease
DX: I70.0 Atherosclerosis of aorta (principal); L90.5 Scar conditions and fibrosis of skin
CPT/HCPCS: 71250

== ENCOUNTER → 2020-04-22 | Outpatient (CLI) | payer MEDICARE ==
[~2020-04-22] MED LIST changes: +ALBUTEROL SULFATE 0.083% 2.5 MG/3 ML INH IH ONE; +ESCI20TA38 PO; -ESCI20TA54 PO
== END | disposition home or self-care (01) ==
LOC: RESP 09:53
PROVIDERS: ATTEND Internal Medicine Cardiovascular Disease
DX: J98.8 Other specified respiratory disorders (principal)
CPT/HCPCS: 94060; 94727; 94729

== ENCOUNTER → 2020-08-07 | Outpatient (CLI) | payer MEDICARE ==
[~2020-08-07] MED LIST changes: -ALBUTEROL SULFATE 0.083% 2.5 MG/3 ML INH IH ONE
== END | disposition home or self-care (01) ==
LOC: RAH 13:27
PROVIDERS: ATTEND Internal Medicine Critical Care Medicine
DX: R06.09 Other forms of dyspnea (principal); R06.02 Shortness of breath; Z95.1 Presence of aortocoronary bypass graft; Z95.0 Presence of cardiac pacemaker
CPT/HCPCS: 71046; 78582; A9540; A9558

== ENCOUNTER → 2022-03-29 | Outpatient (CLI) | payer MEDICARE ==
[2022-03-29 12:49] LABS: CREATININE 1.8 mg/dL (0.5-1.5)
== END | disposition home or self-care (01) ==
LOC: LAB 08:53
PROVIDERS: ATTEND Internal Medicine Cardiovascular Disease
DX: I50.22 Chronic systolic (congestive) heart failure (principal); D68.59 Other primary thrombophilia; I48.91 Unspecified atrial fibrillation; N18.30 Chronic kidney disease, stage 3 unspecified
CPT/HCPCS: 36415; 80048; 83880

== ENCOUNTER → 2022-05-19 | Outpatient (CLI) | payer MEDICARE | END | disposition home or self-care (01) | LOC: RAH 13:57 | PROVIDERS: ATTEND Family Medicine | DX: J96.01 Acute respiratory failure with hypoxia (principal) | CPT/HCPCS: 78582; 71046; A9540; A9558 ==

== ENCOUNTER → 2022-07-14 | Outpatient (CLI) | payer MEDICARE ==
[2022-07-14 12:10] LABS: BASOPHILS % (AUTO) 0.6 % (0.0-5.0); HEMATOCRIT 34.3 % (36-48); LYMPHOCYTES % (AUTO) 33.8 % (21.0-51.0); MEAN CORPUSCULAR HGB CONC 28.3 g/dL (32.0-36.0); MEAN CORPUSCULAR VOLUME 70.7 fL (79-99); MONOCYTES % (AUTO) 9.2 % (3.0-13.0); NEUTROPHILS % (AUTO) 50.3 % (40.0-77.0); PLATELET COUNT (AUTO) 244 K/uL (130-400); RED BLOOD CELL COUNT(AUTO) 4.85 MIL/uL (4.00-5.50); RED CELL DISTRIBUTION WIDTH 18.2 % (11.0-15.5); WHITE BLOOD COUNT (AUTO) 7.1 K/uL (4.8-10.8)
[2022-07-14 12:29] LABS: ALBUMIN 3.6 g/dL (3.5-5.0); CREATININE 1.8 mg/dL (0.5-1.5); POTASSIUM 4.2 mmol/L (3.5-5.1)
== END | disposition home or self-care (01) ==
LOC: LAB 08:14
PROVIDERS: ATTEND Internal Medicine Cardiovascular Disease
DX: I50.42 Chronic combined systolic (congestive) and diastolic (congestive) heart failure (principal); D68.59 Other primary thrombophilia; I63.9 Cerebral infarction, unspecified; I48.91 Unspecified atrial fibrillation
CPT/HCPCS: 36415; 80053; 80061; 83880; 85025

== ENCOUNTER → 2022-12-12 | Outpatient (CLI) | payer MEDICARE ==
[2022-12-12 12:59] LABS: ALBUMIN 3.1 g/dL (3.5-5.0); BILIRUBIN,TOTAL 0.2 mg/dL (0.2-1.0); CREATININE 1.7 mg/dL (0.5-1.5); POTASSIUM 4.4 mmol/L (3.5-5.1); TOTAL PROTEIN, SERUM 6.8 g/dL (6.0-8.3)
== END | disposition home or self-care (01) ==
LOC: LAB 09:38
PROVIDERS: ATTEND Internal Medicine Cardiovascular Disease
DX: I50.22 Chronic systolic (congestive) heart failure (principal); I95.2 Hypotension due to drugs; R05.9 Cough, unspecified
CPT/HCPCS: 36415; 80053; 80061; 83735; 83880

== ENCOUNTER → 2023-10-11 | Outpatient (CLI) | payer MEDICARE ==
[2023-10-11 12:10] LABS: BASOPHILS # (AUTO) 0.07 K/uL (0.00-0.20); BASOPHILS % (AUTO) 0.8 % (0.0-5.0); EOSINOPHILS # (AUTO) 0.25 K/uL (0.00-0.70); EOSINOPHILS % (AUTO) 2.8 % (0.0-8.0); IMMATURE GRANULOCYTE ABSOLUTE 0.04 K/uL (0-1); LYMPHOCYTES # (AUTO) 2.6 K/uL (1.0-4.8); LYMPHOCYTES % (AUTO) 29.2 % (21.0-51.0); MEAN CORPUSCULAR HEMOGLOBIN 29.5 pg (27.0-33.0); MEAN CORPUSCULAR VOLUME 89.5 fL (79-99); MONOCYTES # (AUTO) 0.9 K/uL (0.1-1.0); MONOCYTES % (AUTO) 9.5 % (3.0-13.0); NEUTROPHILS # (AUTO) 5.1 K/uL (1.8-7.7); NEUTROPHILS % (AUTO) 57.3 % (40.0-77.0); PLATELET COUNT (AUTO) 252 K/uL (130-400); RED BLOOD CELL COUNT(AUTO) 4.47 MIL/uL (4.00-5.50); RED CELL DISTRIBUTION WIDTH 13.2 % (11.0-15.5); WHITE BLOOD COUNT (AUTO) 8.9 K/uL (4.8-10.8)
[2023-10-11 12:30] LABS: B-TYPE NATRIURETIC PEPTIDE 66 pg/mL (0-100)
[2023-10-11 12:37] LABS: CREATININE 1.7 mg/dL (0.5-1.0); POTASSIUM 4.3 mmol/L (3.5-5.1)
== END | disposition home or self-care (01) ==
LOC: LAB 11:06
PROVIDERS: ATTEND Internal Medicine Cardiovascular Disease
DX: I95.1 Orthostatic hypotension (principal)
CPT/HCPCS: 36415; 80048; 83880; 85025

== ENCOUNTER → 2024-02-01 | Outpatient (CLI) | payer MEDICARE ==
[2024-02-01 12:46] LABS: ALBUMIN 2.9 g/dL (3.5-5.0); BILIRUBIN,TOTAL 0.2 mg/dL (0.2-1.0); CREATININE 1.1 mg/dL (0.5-1.0); POTASSIUM 4.5 mmol/L (3.5-5.1)
== END | disposition home or self-care (01) ==
LOC: LAB 01-31 11:47
PROVIDERS: ATTEND Internal Medicine Cardiovascular Disease
DX: I11.0 Hypertensive heart disease with heart failure (principal); I50.42 Chronic combined systolic (congestive) and diastolic (congestive) heart failure
CPT/HCPCS: 36415; 80053; 80061

== ENCOUNTER → 2024-04-23 | Outpatient (CLI) | payer MEDICARE ==
--- NOTE | 2024-04-23 14:08 | HMCIMG ---
CT LOW EXT W/O CONTRAST HISTORY: Right hip pain after fall last week COMPARISON: None TECHNIQUE: Multiple sequential axial images of the pelvis were obtained from the iliac crests through symphysis pubis. Patient was not given contrast through intravenous route. Oral contrast was not given. FINDINGS/IMPRESSION: Streak artifact from right femoral fixation pins. Mild calcific plaque along the abdominal aortic and iliac vessel solorio, and moderate stool burden. Both hip joints and sacroiliac joints appear normal. No evidence for fracture, dislocation, or any significant joint effusion.
== END | disposition home or self-care (01) ==
LOC: RAH 12:52
PROVIDERS: ATTEND Family Medicine
DX: M25.551 Pain in right hip (principal); I70.0 Atherosclerosis of aorta
CPT/HCPCS: 73700

== ENCOUNTER → 2024-06-04 | Outpatient (CLI) | payer MEDICARE ==
[2024-06-04 12:43] LABS: CREATININE 1.6 mg/dL (0.5-1.0); POTASSIUM 5.1 mmol/L (3.5-5.1)
== END | disposition home or self-care (01) ==
LOC: LAB 10:51
PROVIDERS: ATTEND Internal Medicine Cardiovascular Disease
DX: I11.0 Hypertensive heart disease with heart failure (principal); I50.42 Chronic combined systolic (congestive) and diastolic (congestive) heart failure; R55 Syncope and collapse; Z95.810 Presence of automatic (implantable) cardiac defibrillator
CPT/HCPCS: 36415; 80048; 83880

== ENCOUNTER → 2024-07-30 | Outpatient (CLI) | payer MEDICARE ==
[~2024-07-30] VITALS: Ht 160 cm; Wt 55.1 kg
[~2024-07-30] MED LIST changes: +APIX2.5T PO; +CYCL-309 PO; +EVOL140S2 SQ; +FURO40TA5 PO; +OXYB10TA30 PO
[2024-07-30 14:27] LABS: BASOPHILS # (AUTO) 0.06 K/uL (0.00-0.20); BASOPHILS % (AUTO) 0.9 % (0.0-5.0); EOSINOPHILS # (AUTO) 0.18 K/uL (0.00-0.70); EOSINOPHILS % (AUTO) 2.7 % (0.0-8.0); HEMATOCRIT 37.8 % (36-48); IMMATURE GRANULOCYTE ABSOLUTE 0.03 K/uL (0-1); LYMPHOCYTES # (AUTO) 1.8 K/uL (1.0-4.8); LYMPHOCYTES % (AUTO) 26.1 % (21.0-51.0); MEAN CORPUSCULAR HEMOGLOBIN 26.6 pg (27.0-33.0); MEAN CORPUSCULAR HGB CONC 31.2 g/dL (32.0-36.0); MEAN CORPUSCULAR VOLUME 85.1 fL (79-99); MONOCYTES # (AUTO) 0.7 K/uL (0.1-1.0); MONOCYTES % (AUTO) 9.9 % (3.0-13.0); NEUTROPHILS # (AUTO) 4.1 K/uL (1.8-7.7); PLATELET COUNT (AUTO) 253 K/uL (130-400); RED BLOOD CELL COUNT(AUTO) 4.44 MIL/uL (4.00-5.50); RED CELL DISTRIBUTION WIDTH 13.4 % (11.0-15.5); WHITE BLOOD COUNT (AUTO) 6.8 K/uL (4.8-10.8)
[2024-07-30 14:39] LABS: PROTHROMBIN TIME 10.6 SEC (9.6-11.6)
[2024-07-30 14:40] LABS: PARTIAL THROMBOPLASTIN TIME 23.3 SEC (26.3-35.5)
[2024-07-30 14:51] LABS: CREATININE 1.8 mg/dL (0.5-1.0); POTASSIUM 4.4 mmol/L (3.5-5.1)
--- NOTE | 2024-07-30 15:05 | NUR ---
report reported rbs to dr mix. pt to follow up with primary. pt scheduled with dr webber for tomorrow at 9am and see rehan shah. pt and spouse informed reported pain and burning with urination to dr mix. received orders to collect ua and culture and fax results to dr webber.
[2024-07-30 15:19] VITALS: BP 111/53; PULSE 74; RESP 17; TEMP 97.8
[2024-07-30 15:25] LABS: ADD UA MICROSCOPIC YES; APPEARANCE,URINE CLEAR (CLEAR); BILIRUBIN,URINE NEGATIVE (NEGATIVE); COLOR,URINE LIGHT-YELLOW (YELLOW); GLUCOSE, URINE (UA) >=1000 mg/dL (NEGATIVE); KETONES,URINE NEGATIVE (NEGATIVE); LEUKOCYTE ESTERASE ,URINE 75 Leu/uL (NEGATIVE); NITRATE,URINE 1+ (NEGATIVE); OCCULT BLOOD,URINE NEGATIVE (NEGATIVE); PH,URINE 5.5 (5.0-8.0); PROTEIN,URINE NEGATIVE (NEGATIVE); UROBILINOGEN,URINE 0.2 mg/dL (0.2-1.0)
[2024-07-30 15:28] LABS: BACTERIA,URINE FEW /HPF (None Seen); MUCUS,URINE RARE LPF (None Seen); SQUAMOUS EPITHELIAL CELL,UR RARE /HPF (0-2); WBC CLUMP RARE /HPF (0-1); WBC,URINE 26-50 /HPF (0-1)
--- NOTE | 2024-07-30 15:38 | EKG ---
[facility] Test Date: 2024-07-30 Test Time: 14:20:00 Pat Name: CE TOMPKINS Department: COUNTS INCLUDE [facility] BEDS AT THE [facility] Room: Gender: F Calibration Specialist: [id number] : 1935 Requested By: MAGNUS WILLIAM Order Number: [id number] Reading MD: Tracy Beaver Measurements Intervals [place] Rate: 70 P: 0 MS: 128 QRS: -78 QRSD: 220 T: 109 QT: 501 QTc: 543 Interpretive Statements Atrial-paced complexes IVCD, consider RBBB LVH with secondary repolarization abnormality ST elevation secondary to IVCD Compared to ECG 01/28/2020 08:43:42 Left ventricular hypertrophy now present Early repolarization now present Intraventricular conduction delay now present ST (T wave) deviation now present Ventricular premature complex(es) no longer present Ventricular-paced complex(es) or rhythm no longer present Left-axis deviation no longer present Electronically Signed On 07-30-2024 18:53:55 CDT by Tracy Beaver Please click the below link to view image of tracing.
--- NOTE | 2024-07-31 08:35 | NUR ---
f/u received call from dr mix to cancel procedure. pt notified
== END | disposition home or self-care (01) ==
LOC: EDSTATUS 10:00 → LAB 13:43
PROVIDERS: ATTEND Internal Medicine Cardiovascular Disease
DX: T82.198A Other mechanical complication of other cardiac electronic device, initial encounter (principal); I45.10 Unspecified right bundle-branch block; I51.7 Cardiomegaly; R94.31 Abnormal electrocardiogram [ECG] [EKG]; Y71.8 Miscellaneous cardiovascular devices associated with adverse incidents, not elsewhere classified; Y92.89 Other specified places as the place of occurrence of the external cause; Z79.01 Long term (current) use of anticoagulants; Z79.899 Other long term (current) drug therapy
CPT/HCPCS: 36415; 80048; 81001; 85025; 85610; 85730; 87086; 87186; 93005

== ENCOUNTER 2024-10-02 06:37 | Day surgery (SDC) | payer MEDICARE ==
[2024-09-30 08:44] LABS: IMMATURE GRANULOCYTE ABSOLUTE 0.03 K/uL (0-1); NUCLEATED RED BLOOD CELLS 0.0 % (0.0-0.19); PLATELET COUNT (AUTO) 254 K/uL (130-400); RED BLOOD CELL COUNT(AUTO) 4.07 MIL/uL (4.00-5.50); RED CELL DISTRIBUTION WIDTH 14.9 % (11.0-15.5); WHITE BLOOD COUNT (AUTO) 8.0 K/uL (4.8-10.8)
--- NOTE | 2024-09-30 08:44 | EKG ---
[facility] Test Date: 2024-09-30 Test Time: 08:33:23 Pat Name: CE TOMPKINS Department: [facility] Room: Gender: F Automation Control Integrator: [id number] : 1935 Requested By: MAGNUS WILLIAM Order Number: [id number] Reading MD: Tu Kruse Measurements Intervals [place] Rate: 88 P: 99 MI: 194 QRS: -48 QRSD: 156 T: 207 QT: 415 QTc: 502 Interpretive Statements A-V dual-paced complexes w/ some inhibition Compared to ECG 07/30/2024 14:20:00 Atrial-paced complex(es) or rhythm no longer present Left ventricular hypertrophy no longer present Early repolarization no longer present Intraventricular conduction delay no longer present ST (T wave) deviation no longer present Electronically Signed On 09-30-2024 18:38:29 CDT by Tu Kruse Please click the below link to view image of tracing.
[2024-09-30 08:52] LABS: CREATININE 1.5 mg/dL (0.5-1.0); GLOMERULAR FILTR. RATE CALC 34.0 mL/min (>90); GLUCOSE,RANDOM 229.0 mg/dL (70-105); SODIUM SERUM 139.0 mmol/L (136-145); UREA NITROGEN, BLOOD 28.0 mg/dL (7-18)
[2024-09-30 08:54] LABS: INR 1.02 (0.85-1.15)
[2024-09-30 09:16] VITALS: BP 107/43; PULSE 82; RESP 15; TEMP 97.7
[~2024-10-02] VITALS: Ht 157.5 cm; Wt 61.5 kg
[2024-10-02] VITALS (8 sets, daily range): BP systolic 101–144; BP diastolic 43–97; PULSE 68–90; RESP 14–15; TEMP 97.3–97.4
[~2024-10-02 06:37] MED LIST changes: +DAPA5TAB PO; +GLIP5TAB15 PO; -HYDR12.54 PO; +INSU3INS3 SQ; -METF-446 PO; -SACU1TAB PO; -SITA100T12 PO
[2024-10-02] MEDS: 0.9%NACL 1000ML 1,000 ML IV SCH (08:05)
[2024-10-02] MEDS ORDERED: SODIUM BICARB 50MEQ 50ML VIAL 50 ML ONE (10:28)
[2024-10-02] MEDS ORDERED: LIDOCAINE HCL 1% MDV 50ML VIAL ONE (10:28)
[2024-10-02] MEDS ORDERED: MIDAZOLAM HCL 1 MG/ML 2ML VIAL ONE ×3 (10:43→11:55)
[2024-10-02] MEDS ORDERED: VANCOMYCIN 1G/250ML KIT 500 ML IV ONE (10:43)
[2024-10-02] MEDS ORDERED: IODIXANOL 320 MG/ML 100 ML VIAL ONE (10:56)
[2024-10-02] MEDS ORDERED: BACITRACIN 1 EACH PACKET TP ONE (13:28)
[2024-10-02] MEDS ORDERED: TRAM50TA4 PO (14:05)
--- NOTE | 2024-10-02 14:15 | PN ---
The patient came in today for an upgrade of her cardiac resynchronization therapy defibrillator due to a nonfunctioning left ventricular lead that was previously implanted in 2018. The plan was to implant a conduction system lead in the left bundle branch area. Unfortunately, this can not be accomplished despite using three different delivery systems with two different companies. Full details in the report. There was one location that yielded good numbers however the pacing threshold was greater than 6 volts. In the end, she had a generator replacement as her device was at [facility]. This patient has NYHA class III-ambulatory IV. When her LV lead was functioning, she was a nonresponder. She continues to have class three symptoms and her ejection fraction has not changed. Consideration was given to replace the left ventricular lead, however since she was previously a nonresponder this was not felt to warrant the risk. Of note, her intrinsic left bundle branch block QRS duration measured at 148 milliseconds, and her RV paced QRS duration is 174 milliseconds. Postprocedure, this could not be brought out given her very long AV delay however this will be re-evaluated in the office. This patient is a good candidate for cardiac contractility modulation therapy. This will be discussed with the patient and the family and possibly planned for the near future. Plan: 1. The patient will be discharged home later today 2. We will see the patient at her usual follow up visit in 10-14 days at which time she will be seen by a provider as well as the device clinic 3. We will discuss cardiac contractility modulation therapy 4. We will re-evaluate her intrinsic AV conduction in the event that we can minimize RV pacing which may be more detrimental than her intrinsic left bundle branch block. MAGNUS WILLIAM MD Oct 02, 2024 14:14
--- NOTE | 2024-10-02 14:17 | NUR ---
PT ARRIVED TO DAY PATIENT 8 VSS NAD PRESSURE DRESSING TO LEFT SIDE OF CHEST NOTED.
--- NOTE | 2024-10-02 16:20 | NUR ---
PRESSURE DRESSING REMOVED FROM LEFT CHEST SCANT AMOUNT OF BLOOD NOTED TO DRESSING UNDER PRESSURE DRESSING. BLOOD OUTLINED EXPLAINED INSTRUCTIONS IF BLEEDING WORSENS. NO HEMATOMA BRUISING NOTED
--- NOTE | 2024-10-02 16:51 | NUR ---
BOTH PT AND SPOUSE GIVEN VERBAL AND WRITTEN DISCHARGE INSTRUCTIONS. I DEMONSTRATED DRESSING CHANGES TO BOTH PT AND . IV REMOVED SITE ASYMPTOMATIC. LEFT CHEST ASYMPTOMATIC. PT TAKEN OUT VIA WHEELCHAIR DRIVING
== END 2024-10-02 16:54 | disposition home or self-care (01) ==
LOC: DAH 06:37
PROVIDERS: ATTEND Internal Medicine Cardiovascular Disease
DX: Z45.02 Encounter for adjustment and management of automatic implantable cardiac defibrillator (principal); T82.198A Other mechanical complication of other cardiac electronic device, initial encounter; I25.5 Ischemic cardiomyopathy; I44.7 Left bundle-branch block, unspecified; I50.42 Chronic combined systolic (congestive) and diastolic (congestive) heart failure; I25.10 Atherosclerotic heart disease of native coronary artery without angina pectoris; E78.5 Hyperlipidemia, unspecified; G47.33 Obstructive sleep apnea (adult) (pediatric); N18.9 Chronic kidney disease, unspecified; E11.22 Type 2 diabetes mellitus with diabetic chronic kidney disease; Z95.1 Presence of aortocoronary bypass graft; Z95.5 Presence of coronary angioplasty implant and graft; Z86.73 Personal history of transient ischemic attack (TIA), and cerebral infarction without residual deficits; Z79.82 Long term (current) use of aspirin; Z79.01 Long term (current) use of anticoagulants; Z79.899 Other long term (current) drug therapy; Y71.2 Prosthetic and other implants, materials and accessory cardiovascular devices associated with adverse incidents
CPT/HCPCS: 80048; 85025; 85610; 85730; 36415; 93005; 33264; 99156; 99157 ×5; 82948 ×2; C1769; C1898 ×2; C1882; J3010 ×2; J0665; J3490 ×2; J2250 ×3; J3373; Q9967; A4215; A4222; A4221; A4663; A4216; A4606; A4223 ×3

== ENCOUNTER 2024-10-11 18:07 | Observation (INO) | payer MEDICARE ==
[~2024-10-11] VITALS: Ht 157.5 cm; Wt 60.1 kg
[~2024-10-11 18:07] MED LIST changes: +TRAM50TA4 PO
[2024-10-11 18:33] LABS: IMMATURE GRANULOCYTE ABSOLUTE 0.02 K/uL (0-1); NUCLEATED RED BLOOD CELLS 0.0 % (0.0-0.19); PLATELET COUNT (AUTO) 262 K/uL (130-400); RED BLOOD CELL COUNT(AUTO) 3.66 MIL/uL (4.00-5.50); RED CELL DISTRIBUTION WIDTH 14.7 % (11.0-15.5); WHITE BLOOD COUNT (AUTO) 7.4 K/uL (4.8-10.8)
[2024-10-11 18:46] LABS: INR 1.04 (0.85-1.15)
--- NOTE | 2024-10-11 18:54 | ERN ---
General Chief Complaint: Other Problems Stated Complaint: HEMATOMA TO PACEMAKER SITE Time Seen by MD: 18:15 History of Present Illness Initial Comments 88-year-old female who presents for left chest wall swelling/mass. On 10/02/2024 patient had a pacemaker placed by Dr. William. There were no complications at the time. She has been taking 2.5 mg of Eliquis b.i.d. and 81 mg of aspirin daily. She reports today she noticed swelling under the site. She does not have any complaints such as internal chest pain, vomiting, dizz iness, or complain of any other bleeding. She denies trauma. Allergies: Coded Allergies: Penicillins (Unverified Allergy, RASH,SWELLS, 12/19/11) Sxfvjlc-Tuz-Pxp Reductase Inhibitor (Unverified Allergy, JOINT PAIN, 11/21 11/01) Sulfa(Sulfonamide Antibiotics) (Unverified Allergy, RASH,SWELLS, 12/19/11) Home Meds Active Scripts Tramadol Hcl (Tramadol HCl) 50 Mg Tablet, 50 MG PO Q6HPRN PRN for PAIN, #15 TAB 0 Refills Prov:MAGNUS WILLIAM MD 10/02/24 Reported Medications Dapagliflozin Propanediol (Farxiga) 5 Mg Tablet, 5 MG PO DAILY, TAB 09/30/24 Insulin Glargine,Hum.rec.anlog (Lantus Solostar) 100 Unit/Ml (3 Ml) Insuln.pen, 30 UNIT SQ PM, SYRINGE 09/30/24 Glipizide (Glipizide) 5 Mg Tablet, 5 MG PO BID, TAB 09/30/24 Apixaban (Eliquis) 2.5 Mg Tablet, 2.5 MG PO BID, TAB 07/30/24 Furosemide (Furosemide) 40 Mg Tablet, 40 MG PO AM, TAB 07/30/24 Oxybutynin Chloride (Oxybutynin Chloride ER) 10 Mg Tab.er.24, 10 MG PO AM 07/30/24 Cyclobenzaprine HCl (Cyclobenzaprine HCl) 10 Mg Tablet, 10 MG PO TID PRN for PAIN, TAB 07/30/24 Evolocumab (Repatha Syringe) 140 Mg/Ml Syringe, 140 MG SQ [id number], SYRINGE 07/30/24 Budesonide (Budesonide EC) 3 Mg Capdr...er, 9 MG PO DAILY 01/29/20 Cetirizine HCl (Zyrtec) 10 Mg Tablet, 20 MG PO BID, TAB 01/29/20 Pantoprazole Sodium (Pantoprazole Sodium) 40 Mg Tablet.dr, 40 MG PO DAILY, TAB 01/29/20 Metoprolol Succinate (Metoprolol Succinate) 25 Mg Tab.er.24h, 25 MG PO AM, TAB 01/29/20 Nitroglycerin (Nitroglycerin) 0.4 Mg Tab.subl, 0.4 MG SL AD, TAB.SL 07/13/17 Escitalopram Oxalate (Escitalopram Oxalate) 20 Mg Tablet, 20 MG PO DAILY, TAB 07/13/17 Aspirin (Aspirin EC) 81 Mg Tablet.dr, 81 MG PO HS, TAB 07/13/17 Past Medical History Past Medical History: Diabetes-Type II, Heart Disease, Renal Disese Past Surgical History: Hysterectomy, CABG Surgical History Other: RT ANKLE SX, ROS Dictation CONSTITUTIONAL: No chills, no fever, no weakness, no diaphoresis, no malaise. HEAD/FACE: No signs of trauma. EENT: No eye pain, no blurred vision, no tearing, no double vision, no ear pain, no ear discharge, no nose pain, no nasal congestion, no throat pain, no throat swelling, no mouth pain. RESPIRATORY: No cough, no orthopnea, no SOB, no stridor, no wheezing. CARDIOVASCULAR: Left chest wall swelling GASTROINTESTINAL/ABDOMINAL: No abdominal pain, no constipation, no diarrhea, no nausea, no vomiting. GENITOURINARY: No abnormal discharge, no dysuria, no frequent urination, no hematuria. No complaints of pain in the genitals. MUSCULOSKELETAL: No back pain, no gout, no joint pain, no joint swelling, no muscle pain, no muscle stiffness, no neck pain. INTEGUMENTARY: No change in color, no change in hair/nails, no dryness, no lesion, no lumps, no rash. NEUROLOGICAL/PSYCH: No anxiety, not depressed, no emotional problem, no headache, no numbness, no pre-existing deficit, no history of seizures, no tremors, no weakness. HEMATOLOGIC/LYMPHATIC: Not anemic, no history of blood clots, no apparent bleeding, no bruising, glands not swollen. All Systems Negative, Except as Noted. Physical Exam Physical Exam Dictation VITAL SIGNS: Reviewed. GENERAL APPEARANCE: Alert, oriented x3, no acute distress HEAD AND FACE: Non-traumatic. EYES: PERRL, pink conjunctivas, eyelid no trauma, anterior chamber clear. EARS: Pinnas intact and no signs of trauma or erythema. Ear canals clear and no discharge. TMs no erythema. NOSE: No discharge, no bleeding. OROPHARYNX: Mouth normal, teeth no caries, tongue pink. Pharynx clear, no erythema. Tonsils no exudates, no abscesses noted. Mucous membrane moist. NECK: Supple, non-tender, no thyromegaly, no masses, no JVD, no bruits. BREAST: Deferred. CHEST: No tenderness, no crepitus, no paradoxical movement, no retractions. Left chest wall has swelling/hematoma under the cleaned wound site. Approximately the size of an orange. LUNGS: Clear, well-ventilated, symmetric, no rales, no wheezing, no rhonchi, no stridor, good breath sounds bilaterally. HEART: Regular rate, regular rhythm, no murmur, no gallops. VASCULAR: No peripheral edema. ABDOMEN: Soft, positive bowel sounds, nondistended, no guarding, nontender, no rebound, no masses no hepatomegaly, no splenomegaly, no Larios's sign, no hernias. RECTAL: Deferred. GENITAL: Deferred. NEUROLOGICAL: Normal speech, gross motor function intact, gross sensory function intact. MUSCULOSKELETAL: Neck nontender, full range of motion, back nontender, full range of motion. EXTREMITIES: Nontender, full range of motion. SKIN: Color pink, dry, no turgor, no rash, no lacerations, no abrasions, no contusions. LYMPHATICS: Deferred. Results Laboratory and Microbiology Lab and Micro Result Laboratory Tests Test 10/11/24 18:25 10/11/24 19:22 White Blood Count 7.4 K/uL (4.8-10.8) Red Blood Count 3.66 MIL/uL (4.00-5.50) L Hemoglobin 9.1 g/dL (12.0-16.0) L Hematocrit 29.7 % (36-48) L Mean Corpuscular Volume 81.1 fL (79-99) Mean Corpuscular Hemoglobin 24.9 pg (27.0-33.0) L Mean Corpuscular Hemoglobin Concent 30.6 g/dL (32.0-36.0) L Red Cell Distribution Width 14.7 % (11.0-15.5) Platelet Count 262 K/uL (130-400) Mean Platelet Volume 9.7 fL (7.5-10.5) Immature Granulocyte % (Auto) 0.3 % (0-1) Neutrophils (%) (Auto) 61.2 % (40.0-77.0) Lymphocytes (%) (Auto) 21.1 % (21.0-51.0) Monocytes (%) (Auto) 9.8 % (3.0-13.0) Eosinophils (%) (Auto) 6.8 % (0.0-8.0) Basophils (%) (Auto) 0.8 % (0.0-5.0) Neutrophils # (Auto) 4.5 K/uL (1.8-7.7) Lymphocytes # (Auto) 1.6 K/uL (1.0-4.8) Monocytes # (Auto) 0.7 K/uL (0.1-1.0) Eosinophils # (Auto) 0.50 K/uL (0.00-0.70) Basophils # (Auto) 0.06 K/uL (0.00-0.20) Absolute Immature Granulocyte (auto 0.02 K/uL (0-1) Nucleated Red Blood Cells 0.0 % (0.0-0.19) Red Blood Cell Morphology See comments Prothrombin Time 11.0 SEC (9.6-11.6) Prothromb Time International Ratio 1.04 (0.85-1.15) Activated Partial Thromboplast Time 24.7 SEC (26.3-35.5) L Sodium Level 136 mmol/L (136-145) Potassium Level 4.0 mmol/L (3.5-5.1) Chloride Level 101 mmol/L (101-111) Carbon Dioxide Level 29 mmol/L (21-32) Blood Urea Nitrogen 27 mg/dL (7-18) H Creatinine 1.4 mg/dL (0.5-1.0) H Glomerular Filtration Rate Calc 36 mL/min (>90) Random Glucose 297 mg/dL (70-105) H Total Calcium 8.4 mg/dL (8.5-10.1) L Total Creatine Kinase 52 U/L (21-232) Troponin I High Sensitivity 101 ng/L (4-50) *H Urine Color COLORLESS (YELLOW) Urine Appearance CLEAR (CLEAR) Urine pH 5.5 (5.0-8.0) Urine Specific [place] 1.006 (1.001-1.031) Urine Protein NEGATIVE mg/dL (NEGATIVE) Urine Glucose (UA) 30 mg/dL (NEGATIVE) H Urine Ketones NEGATIVE mg/dL (NEGATIVE) Urine Occult Blood NEGATIVE (NEGATIVE) Urine Nitrate NEGATIVE (NEGATIVE) Urine Bilirubin NEGATIVE mg/dL (NEGATIVE) Urine Urobilinogen 0.2 mg/dL (0.2-1.0) Urine Leukocyte Esterase NEGATIVE Aram/uL Urine RBC 0-1 /HPF (0-1) Urine WBC 2-5 /HPF (0-1) H Urine Squamous Epithelial Cells RARE /HPF (0-2) Urine Bacteria None /HPF (None Seen) MDM Differential diagnosis: Hematoma of chest wall, abscess, migration of the pacemaker Rationale: Tests considered and ordered secondary to shared decision making include: labs, ECG and radiology Previous outside records reviewed: Old ER visits. Risk of complication and/or morbidity or mortality of patient management: None Medications-Per medication reconciliation Need for hospitalization: Patient does meet criteria for hospitalization. Need for emergency major/minor surgery: No There are no social concerns with this patient. Prescription drug management Prescriptions will include symptomatic care Patient's prior external medical records from other ER visits were reviewed by me as indicated. Prior testing and results from previous visits were reviewed. Prior tests were taken into account with medical decision making and resource utilization, independent historian/historians were used to obtain complete medical history. I independently interpreted the test that were performed, results were reviewed by me and considered findings on radiology if ordered. Medical management and examination interpretation discussions were had by me with other qualified healthcare professionals as indicated for the patient's care. ED Course Orders Procedure Category Date Status Time Cardiac Panel LAB 10/11/24 Complete 18:18 Cbc With Differential LAB 10/11/24 Complete 18:18 Basic Metabolic Panel LAB 10/11/24 Complete 18:18 Prothrombin Time With LAB 10/11/24 Complete INR 18:18 Partial LAB 10/11/24 Complete Thromboplastin Time 18:18 12 Lead Ekg Tracing- EKG 10/11/24 Complete Technical 18:18 Chest 1vw RAD 10/11/24 Resulted 18:18 Urinalysis Profile LAB 10/11/24 Complete 20:08 Morphine 2mg Syg PHA 10/11/24 Complete (Morphine 2mg Syg) 20:30 Edm Admit Bridge Order ADM 10/11/24 Transmitted 20:36 Current Medications Medications (Trade) Dose Ordered Sig/Payam Route PRN Reason Start Time Stop Time Status Last Admin Dose Admin Morphine Sulfate (morPHINE 2MG SYG) 2 mg ONCE ONCE IVP 10/11/24 20:30 10/11/24 20:31 DC Vital Signs Date Time Temp Pulse Resp B/P (MAP) Pulse Ox O2 Delivery O2 Flow Rate FiO2 10/11/24 21:12 81 18 137/74 96 Room Air* 0 10/11/24 19:55 98.1 78 18 139/58 99 Room Air* 0 10/11/24 18:48 97.9 61 17 140/61 95 Room Air* 0 10/11/24 18:08 98.1 73 18 126/53 97 Room Air 7:05 p.m. patient was signed out to me by a.m. physician Ms. Birmingham is a very pleasant 88-year-old female with multiple medical problems presented to the emergency room complaining of swelling of the pacemaker area. Patient underwent pacemaker procedure unclear if it was just replacement of wire [address] William. Her anticoagulation and aspirin were resumed. Patient began experiencing increasing swelling in the left chest area subclavicular area progressively and she began experiencing pain warranting her visit to ER No fever chills or rigors. No drainage. Dr. Gonzáles spoke with Dr. Pringle mortgage loan counselor who basically recommended holding all the anticoagulation. Temperature 98 pulse 73 respirations 18 blood pressure 126/53 with a pulse oximetry of 97% on room air Her chronic medical problems include diabetes mellitus, hypertension, coronary artery disease status post CABG, chronic kidney disease. Left chest area extremely large, firm swelling surrounding the pacemaker. Labs reviewed CBC showed a white count of 7.4 hemoglobin 9.1 platelets 262. Please note that patient had a hemoglobin of 11.8 on 07/30/2024 and 10.2 on 09/20 BNP 7 is significant for a BUN and creatinine of 27 and 1.4 with a glucose of 297. Chest x-ray shows haziness in the left lung area may simply be the hematoma at the chest wall causing the shadow Considering significant hemoglobin drop and extremely large hematoma with pain, I recommended to the patient and her spouse that it would be prudent to monitor her in the hospital. Both are agreeable 8:38 p.m. patient accepted by [facility] mid-level provider for [facility] for admission and monitoring serial hemoglobins and transfuse as necessary . DX & DISP Disposition: Inpatient Departure Impression: Primary Impression: Chest wall hematoma Additional Impressions: Anticoagulant effect, Chest wall pain following surgery, Postsurgical cardiac pacemaker in situ Condition: Stable Additional Instructions: Patient was informed of all the diagnostic labs and procedures conducted in the emergency room today and demonstrated understanding of the results. I personally reviewed and interpreted all the diagnostic exams performed in the ER today. The patient will be admitted to the hospital for further treatment and evaluation. Disposition-admit to facility Condition-stable/guarded Course-uncertain at this time Pain status-decreased Assessment-exam unchanged Admission Certification- I certify that the patients status is appropriate and is based on my best clinical judgment and the patient's condition as documented in the medical records Referrals: JAMESON FREGOSO MD (PCP) NILS GONZÁLES DO Oct 11, 2024 18:54 TAE RICHARDSON MD Oct 11, 2024 20:46
--- NOTE | 2024-10-11 18:58 | EKG ---
[facility] Test Date: 2024-10-11 Test Time: 18:52:49 Pat Name: CE TOMPKINS Department: ED Room: 220 Gender: F Gravel Screener: [id number] : 1935 Requested By: NILS LYNN Order Number: [id number] Reading MD: Roberto Pringle Measurements Intervals [place] Rate: 78 P: 34 SC: 231 QRS: -76 QRSD: 190 T: 97 QT: 481 QTc: 550 Interpretive Statements Sinus with Atrial sensing and Ventricular pacing Compared to ECG 09/30/2024 08:33:23 No significant changes Electronically Signed On 10-12-2024 12:08:01 CDT by Roberto Pringle Please click the below link to view image of tracing.
[2024-10-11 19:03] LABS: CREATININE 1.4 mg/dL (0.5-1.0); GLOMERULAR FILTR. RATE CALC 36.0 mL/min (>90); GLUCOSE,RANDOM 297.0 mg/dL (70-105); SODIUM SERUM 136.0 mmol/L (136-145); UREA NITROGEN, BLOOD 27.0 mg/dL (7-18)
[2024-10-11 19:11] LABS: CREATINE KINASE, TOTAL 52.0 U/L (21-232)
--- NOTE | 2024-10-11 19:30 | HMCIMG ---
EXAM: CR Chest, 1 View. CLINICAL HISTORY: chest wall hematoma COMPARISON: Radiograph dated January 28, 2020 FINDINGS: AICD leads overlie the right atrium and both ventricles. Heart size is stable. Pulmonary vessels are within normal limits. Lungs are clear. No pleural effusion or pneumothorax. Bandage overlies the left upper chest and skin silver are present. IMPRESSION: 1. No acute cardiopulmonary findings. /[place]
[2024-10-11 20:26] LABS: APPEARANCE,URINE CLEAR (CLEAR); GLUCOSE, URINE (UA) 30 mg/dL (NEGATIVE); LEUKOCYTE ESTERASE ,URINE NEGATIVE Leu/uL (NEGATIVE); NITRATE,URINE NEGATIVE (NEGATIVE); OCCULT BLOOD,URINE NEGATIVE (NEGATIVE)
[2024-10-11 20:29] LABS: ADD UA MICROSCOPIC YES
[2024-10-11 20:30] LABS: SQUAMOUS EPITHELIAL CELL,UR RARE /HPF (0-2)
[2024-10-11] MEDS ORDERED: LACTULOSE 20 GM/30 ML UDCUP PO PRN (22:30)
[2024-10-11] MEDS ORDERED: HYDROcodone/APAP 5/325 1 TAB TABLET PO PRN (22:30)
--- NOTE | 2024-10-11 22:50 | HP ---
[facility] HISTORY & PHYSICAL Date Patient Seen: Oct 11, 2024 Time of Visit: 22:50 Supervising Physician: Dr. Siegel Primary Care Physician: JAMESON Daniel MD Outpatient Specialists: [ ] Inpatient Consults: [ ] PROBLEM LIST: Massive left chest hematoma s/p AICD upgrade surgery on 10/02/[address] Kang. Hypertension. Diabetes mellitus type 2. EDIS Hx. 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 Kang. The patient was subsequently discharged home. After resuming her Eliquis 2.5 Bid and aspirin 81 mg daily, the patient noticed a orange sized lump in her left chest at the surgical site. For this reason, the patient decided to come into the emergency department for further evaluation and management of her condition. Upon initial workup in the emergency department, vital signs were unremarkable. Laboratory data were as well unremarkable except for slightly elevated renal parameters with a BUN of 27, creatinine of 1.4 and a GFR of 36, also a troponin of 101. There was no coagulopathy and urine analysis was negative. Imaging of the chest showed no acute airspace disease. Because of the large sized hematoma, the patient was admitted for observation. At the time of my visit, the patient remained in the emergency department awaiting bed assignment. No other complaint. PAST MEDICAL HX: see above PAST SURGICAL HX: noncontributory SOCIAL HISTORY: No tobacco, ETOH, or illicit drug use Coded Allergies: Penicillins (Unverified Allergy, RASH,SWELLS, 12/19/11) Ghtdyha-Hve-Nfe Reductase Inhibitor (Unverified Allergy, JOINT PAIN, 12/19/11) Sulfa(Sulfonamide Antibiotics) (Unverified Allergy, RASH,SWELLS, 12/19/11) REVIEW OF SYSTEMS: 12 point ROS reviewed with patient. Pertinent positives mentioned above. Otherwise negative. PHYSICAL EXAM: GENERAL: Alert, weak, awake oriented x 3 HEENT: EOMI, Sclera non icteric, moist mucosa NECK: Supple, no JVD, trachea midline CHEST: Massive left chest hematoma LUNGS: Clear breath sounds bilaterally. No wheezes HEART: Regular rate and rhythm. Normal S1 and S2, without murmurs ABD: Abdomen soft, nontender. Bowel sounds present EXT: No clubbing cyanosis or edema NEURO: Alert and oriented to person, follows commands Vital Signs (last 8hr) Date Time Temp Pulse Resp B/P (MAP) Pulse Ox O2 Delivery O2 Flow Rate FiO2 10/11/24 22:32 77 16 141/55 97 Room Air* 0 10/11/24 21:12 81 18 137/74 96 Room Air* 0 10/11/24 19:55 98.1 78 18 139/58 99 Room Air* 0 10/11/24 18:48 97.9 61 17 140/61 95 Room Air* 0 10/11/24 18:08 98.1 73 18 126/53 97 Room Air LABS: Hematology Labs: Test 10/11/24 18:25 Range/Units White Blood Count 7.4 4.8-10.8 K/uL Red Blood Count 3.66 L 4.00-5.50 MIL/uL Hemoglobin 9.1 L 12.0-16.0 g/dL Hematocrit 29.7 L 36-48 % Mean Corpuscular Volume 81.1 79-99 fL Mean Corpuscular Hemoglobin 24.9 L 27.0-33.0 pg Mean Corpuscular Hemoglobin Concent 30.6 L 32.0-36.0 g/dL Red Cell Distribution Width 14.7 11.0-15.5 % Platelet Count 262 130-400 K/uL Mean Platelet Volume 9.7 7.5-10.5 fL Immature Granulocyte % (Auto) 0.3 0-1 % Neutrophils (%) (Auto) 61.2 40.0-77.0 % Lymphocytes (%) (Auto) 21.1 21.0-51.0 % Monocytes (%) (Auto) 9.8 3.0-13.0 % Eosinophils (%) (Auto) 6.8 0.0-8.0 % Basophils (%) (Auto) 0.8 0.0-5.0 % Neutrophils # (Auto) 4.5 1.8-7.7 K/uL Lymphocytes # (Auto) 1.6 1.0-4.8 K/uL Monocytes # (Auto) 0.7 0.1-1.0 K/uL Eosinophils # (Auto) 0.50 0.00-0.70 K/uL Basophils # (Auto) 0.06 0.00-0.20 K/uL Absolute Immature Granulocyte (auto 0.02 0-1 K/uL Nucleated Red Blood Cells 0.0 0.0-0.19 % Red Blood Cell Morphology See comments Chemistry Labs: Test 10/11/24 18:25 Range/Units Sodium Level 136 136-145 mmol/L Potassium Level 4.0 3.5-5.1 mmol/L Chloride Level 101 101-111 mmol/L Carbon Dioxide Level 29 21-32 mmol/L Blood Urea Nitrogen 27 H 7-18 mg/dL Creatinine 1.4 H 0.5-1.0 mg/dL Glomerular Filtration Rate Calc 36 >90 mL/min Random Glucose 297 H 70-105 mg/dL Total Calcium 8.4 L 8.5-10.1 mg/dL Total Creatine Kinase 52 21-232 U/L Troponin I High Sensitivity 101 *H 4-50 ng/L Coagulation Labs: Test 10/11/24 18:25 Range/Units Prothrombin Time 11.0 9.6-11.6 SEC Prothromb Time International Ratio 1.04 0.85-1.15 Activated Partial Thromboplast Time 24.7 L 26.3-35.5 SEC DIAGNOSTICS / RADIOLOGY RESULTS: [ ] PLAN Patient admitted to Med/surg with telemetry observation status. Staff nurse to demarcate the swelling and continue to monitor its progression. Per ER MD, the case was discussed with cardiology and was advised that drainage of the hematoma is not customarily done. Will monitor the patient's progress and response to management. Continue current pain management. Will repeat surveillance labs in the morning. Continue to provide general supportive care, GI and DVT prophylaxis. Further orders per attending MD and hospital course. NEURO: Minimize central acting medications as possible. Maintain fall precautions, adequate lighting during the day PULMONARY: Supplemental 02 as needed. Maintain aspiration precautions at all times CARDIOVASCULAR: Follow hemodynamics. Vital signs per facility protocol GI & NUTRITION: Continue with nutritional support. Continue stool softeners and laxatives as needed. KIDNEYS & ELECTROLYTES: Strict monitoring of intake, output and overall fluid balance. Avoid nephrotoxic medications to the extent possible. Medications to be dosed according to renal function. Monitor electrolytes and replace as needed ENDOCRINE: Maintain blood glucose between 100-180 at all times. Hypoglycemia protocol in place INFECTIOUS DISEASE: Trend temperature, WBC and procalcitonin level Follow cultures, deescalate antibiotics as soon as possible. Panculture if new onset fever ONCOLOGY/HEMATOLOGY/COAGULATION: Monitor for s/s of bleeding Monitor hemoglobin, coagulation studies as needed SKIN: Pressure ulcer prevention per facility protocol Specialty mattress ORTHO/REHAB: Continue PT/OT Prophylaxis: Continue GI and DVT prophylaxis Code Status: Full Resuscitation Disposition: TBD Other: Patient was seen by me. Supervising DANIELLE Zapata Dr., NP Oct 11, 2024 22:50
--- NOTE | 2024-10-11 22:59 | NUR ---
LEANNE SANTOS PRICING ANALYST ROUNDS AT BEDSIDE AT THIS TIME.
--- NOTE | 2024-10-12 00:11 | NUR ---
REPORT GIVEN TO TUYET RESENDIZ, PT GOING TO RM 220
--- NOTE | 2024-10-12 00:25 | NUR ---
ADMIT Patient admitted from ER at 0022. Vitals stable. Minimal soreness and swelling to left upper chest wall status post pacemaker insertion on 10/02/2024. Left upper chest incision with 12 silver noted. Denies chest pain or shortness of breath. Denies nausea/vomiting. Pending to bring home medications, states her will bring medications in the morning. Plan of care discussed. Educated on fall precautions and use of call light, verbalized understanding. Bed alarm on.Call light within reach.
[2024-10-12 00:30] VITALS: BP 136/62; PULSE 80; RESP 20; TEMP 98
--- NOTE | 2024-10-12 00:40 | NUR ---
DNR Patient states she has a out of hospital DNR. Patient signed hospital DNR form. Signed and filed in chart. DNR bracelet on.
[2024-10-12 03:10] VITALS: BP 133/56; PULSE 82; RESP 18; TEMP 97.8
[2024-10-12 05:35] LABS: IMMATURE GRANULOCYTE ABSOLUTE 0.02 K/uL (0-1); NUCLEATED RED BLOOD CELLS 0.0 % (0.0-0.19); PLATELET COUNT (AUTO) 288 K/uL (130-400); RED BLOOD CELL COUNT(AUTO) 3.56 MIL/uL (4.00-5.50); RED CELL DISTRIBUTION WIDTH 14.7 % (11.0-15.5); WHITE BLOOD COUNT (AUTO) 8.0 K/uL (4.8-10.8)
[2024-10-12 05:44] LABS: CREATININE 1.4 mg/dL (0.5-1.0); GLOMERULAR FILTR. RATE CALC 36.0 mL/min (>90); GLUCOSE,RANDOM 140.0 mg/dL (70-105); SODIUM SERUM 142.0 mmol/L (136-145); UREA NITROGEN, BLOOD 26.0 mg/dL (7-18)
[2024-10-12 07:00] VITALS: BP 136/55; PULSE 89; RESP 19; TEMP 98.7
[2024-10-12 08:00] VITALS: O2SAT 97
[2024-10-12 11:00] VITALS: BP 126/54; PULSE 77; RESP 19; TEMP 98.8
[2024-10-12 11:00] LABS: IMMATURE GRANULOCYTE ABSOLUTE 0.02 K/uL (0-1); NUCLEATED RED BLOOD CELLS 0.0 % (0.0-0.19); PLATELET COUNT (AUTO) 255 K/uL (130-400); RED BLOOD CELL COUNT(AUTO) 3.50 MIL/uL (4.00-5.50); RED CELL DISTRIBUTION WIDTH 14.6 % (11.0-15.5); WHITE BLOOD COUNT (AUTO) 8.0 K/uL (4.8-10.8)
--- NOTE | 2024-10-12 13:43 | PN ---
[facility] Progress Note Cardiology evaluation October 12, 2024 This is an 88-year-old female who admitted for observation because of a pacemaker site hematoma. Patient has a history an ischemic cardiomyopathy with ejection fraction of 30%. She had a defibrillator implanted June 2017. Her device was upgraded on October 02, 2024. She was discharged home in stable condition. Past history significant for hypertension diabetes mellitus type 2. Over the past48 hours she noticed increased swelling at the site and came to the emergency room. She was found to have a hematoma. There was no dehiscence of the wound and the wound appears clean. There was no erythema. Her hemoglobin was 9.1 and she was admitted for observation. She denies any chest pain or shortness of breath. She has no pain at the hematoma site. Blood pressure is running 126/50 heart rate in the 70s and the patient is afebrile. Repeat labs have shown follow up hemoglobin of 8.8 and 8.7 essentially unchanged. At this point I would not recommend drainage of the hematoma as this may in reduce infection and would require removal of the entire device two weeks of antibiotics and placement of a new device on the other side. The hematoma we w ill gradually resolve over the next 3-4 weeks. I have asked her to remain off Eliquis until Monday and then start back on her usual dose without aspirin. She has an appointment to see Dr. Kang for follow up on Monday. Chest x-ray shows no pneumothorax. Biventricular leads are in good position. Plan is as above. SHERRI FIORE MD Oct 12, 2024 13:43
[2024-10-12 15:30] VITALS: BP 132/57; PULSE 76; RESP 18; TEMP 98
--- NOTE | 2024-10-12 16:36 | NUR ---
DCP: INITIAL ASSESSMENT Patient lives with spouse. She has no home services. Patient has cane, hospital bed, rollator, shower chair, BPM, oximeter, and O2 concentrator/portable. Home O2 supplied by [employer]. Patient is able to drive and complete ADLs independently. PCP is Dr. Richie Camacho. Pharmacy is [facility] in [place]. Patient voiced no safety concerns regarding returning home and states she has no difficulty with housing or buying food. DCP is home. Addendum: 10/12/24 at 1640 by HOLLI BEAVERS Amended: Links added.
--- NOTE | 2024-10-12 17:30 | NUR ---
DISCHARGE INSTRUCTIONS WERE GIVEN TO THIS PATIENT AND SPOUSE AT BEDSIDE. EDUCATION WAS GIVEN ON HOLDING ELIQUIS UNTIL MONDAY AND NOT TAKING ASPIRIN 81MG PO UNTIL FURTHER ORDERS FROM HER SAP BUSINESS ANALYST. SHE VOICED UNDERSTANDING AND SHE STATED SHE ALREADY HAS A FOLLOW UP APPT WITH DR. WILLIAM ON MONDAY. ALL BELONGINGS WERE ACCOUNTED FOR. PIV TO RIGHT HAND WAS REMOVED WITH CATHETER INTACT AND DRY DRESSING APPLIED TO SITE. TELE PACK WAS REMOVED AND RETURNED TO TELE ROOM. PATIENT WAS TAKEN DOWN TO PRIVATE VEHICLE VIA WHEEL CHAIR.
--- NOTE | 2024-10-12 20:45 | DS ---
[facility] DISCHARGE SUMMARY Date Patient Seen: Oct 12, 2024 Time of Visit: 20:43 Supervising Physician: Dr Siegel Primary Care Physician: JAMESON Daniel MD Outpatient Specialists: [ ] Inpatient Consults: [facility] PROBLEM LIST: Large left chest hematoma s/p AICD upgrade surgery on 10/02/[address] Kang. Hypertension. Diabetes mellitus type 2. EDIS Hx. 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 CAD status post CABG HOSPITAL COURSE: HPI This is an 88-year-old female who admitted for observation because of a pacemaker site hematoma. Patient has a history an ischemic cardiomyopathy with ejection fraction of 30%. She had a defibrillator implanted June 2017. Her device was upgraded on October 02, 2024. She was discharged home in stable condition. Past history significant for hypertension diabetes mellitus type 2. Over the past48 hours she noticed increased swelling at the site and came to the emergency room. She was found to have a hematoma. There was no dehiscence of the wound and the wound appears clean. There was no erythema. Her hemoglobin was 9.1 and she was admitted for observation. She denies any chest pain or shortness of breath. She has no pain at the hematoma site. Blood pressure is running 126/50 heart rate in the 70s and the patient is afebrile. 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 At this point I would not recommend drainage of the hematoma as this may in reduce infection and would require removal of the entire device two weeks of antibiotics and placement of a new device on the other side. The hematoma we will gradually resolve over the next 3-4 weeks. I have asked her to remain off Eliquis until Monday and then start back on her usual dose without aspirin. She has an appointment to see Dr. Kang for follow up on Monday. Chest x-ray shows no pneumothorax. Biventricular leads are in good position. Plan is as above. PROCEDURES: as mentioned above DISCHARGE MEDICATIONS: remain off Eliquis until Monday and then start back on her usual dose without aspirin. Pt hemodynamically stable and afebrile at time of discharge. PCP notified of patients admission, hospital course and discharge. PHYSICAL EXAM: GENERAL: Alert, weak, awake oriented x 3 HEENT: EOMI, Sclera non icteric, moist mucosa NECK: Supple, no JVD, trachea midline CHEST: Massive left chest hematoma LUNGS: Clear breath sounds bilaterally. No wheezes HEART: Regular rate and rhythm. Normal S1 and S2, without murmurs ABD: Abdomen soft, nontender. Bowel sounds present EXT: No clubbing cyanosis or edema NEURO: Alert and oriented to person, follows commands FOLLOW-UP: Follow-up with PCP in 2-3 days RECOMMENDATIONS: See Discharge Instructions This case was seen and discussed with my supervising physician. More than 30 minutes spent on discharge process, including evaluation of the patient, discussion with nursing staff, medication reconciliation and follow-up appoin SHERRI Kurtz Oct 12, 2024 20:45
== END 2024-10-12 17:56 | disposition home or self-care (01) ==
LOC: EDH 18:07 → EDHIP 22:21 → 2DH 10-12 00:30
PROVIDERS: ADMIT Internal Medicine Critical Care Medicine; ATTEND Internal Medicine Critical Care Medicine
DX: S20.212A Contusion of left front wall of thorax, initial encounter (principal); I11.0 Hypertensive heart disease with heart failure; I50.42 Chronic combined systolic (congestive) and diastolic (congestive) heart failure; E11.9 Type 2 diabetes mellitus without complications; I25.10 Atherosclerotic heart disease of native coronary artery without angina pectoris; N17.9 Acute kidney failure, unspecified; I25.5 Ischemic cardiomyopathy; Z79.82 Long term (current) use of aspirin; Z88.0 Allergy status to penicillin; Z90.710 Acquired absence of both cervix and uterus; Z95.1 Presence of aortocoronary bypass graft; Z95.810 Presence of automatic (implantable) cardiac defibrillator; X58.XXXA Exposure to other specified factors, initial encounter; Y93.89 Activity, other specified; Y92.89 Other specified places as the place of occurrence of the external cause; Y99.8 Other external cause status; Y83.1 Surgical operation with implant of artificial internal device as the cause of abnormal reaction of the patient, or of later complication, without mention of misadventure at the time of the procedure
CPT/HCPCS: 99285; 82550; 84484; 80048 ×2; 85025 ×3; 85610; 85730; 81001; 36415 ×2; 71045; 93005; G0378 ×19